=== PATIENT | female | born 2005 | race Caucasian/White ===

== ENCOUNTER 2023-04-22 08:05 | Outpatient (CLI) | payer OTHER, SELFPAY | END 2023-04-22 08:06 | disposition home or self-care (01) | PROVIDERS: PCP Pediatrics; Visit Provider Family Medicine | DX: Z00.00 Encounter for general adult medical examination without abnormal findings (principal); Z13.6 Encounter for screening for cardiovascular disorders; Z13.0 Encounter for screening for diseases of the blood and blood-forming organs and certain disorders involving the immune mechanism; Z02.5 Encounter for examination for participation in sport | CPT/HCPCS: 80053; 80061; 85660 ==